=== PATIENT | male | born 1985 | race Caucasian/White ===

== ENCOUNTER → 2020-10-21 | Outpatient (CLI) | payer OTHER ==
--- NOTE | 2020-10-21 13:00 | REP ---
INDICATION: LUMBOSACRAL COMPLETE. COMPARISON: None. TECHNIQUE: Five views lumbosacral spine. FINDINGS: There is no compression fracture or malalignment. There is normal lumbar lordosis. Disc spaces are well preserved. Posterior elements are intact. Small Schmorl's nodes are visualized at the superior and inferior endplates of T12 and superior endplate of L1. There are unfused transverse processes at L1. IMPRESSION: No fracture or dislocation. Small Schmorl's nodes at T12 superior and inferior endplates, and at the superior endplate of L1. <Electronically signed by Greg Mcfarland > 10/21/20 1257
== END ==
LOC: M RAD 12:13
PROVIDERS: ATTEND Physician Assistant
DX: M54.5 Low back pain (principal); M51.46 Schmorl's nodes, lumbar region